=== PATIENT | female | born 1950 | race Caucasian/White ===

== ENCOUNTER 2017-05-27 17:15 | Emergency (ER) | payer MEDICARE, OTHER ==
[2017-05-27] MEDS ORDERED: diphenhydrAMINE INJ 50 MG/ML VIAL IM STA (18:20)
[2017-05-27] MEDS ORDERED: DEXAMETHASONE 10 MG/ML VIAL IM STA (18:20)
--- NOTE | 2017-05-27 18:21 | ED Physician Documentation ---
History of Present Illness - Stated complaint Stated Complaint: SWOLLEN FACE - Chief complaint Chief Complaint: General - History obtained from History obtained from: Patient, Family - History of Present Illness Timing: Other (At 89 today while preparing a salad without nuts or shellfish she developed angioedema on the right side of the face that developed to the left. It did not involve the posterior oropharynx and she has not had any wheezing or rash. She has never had this before. She is not allergic to anything. She is not on DANG inhibitors. It does not run in the family.) Review of Systems Constitutional: denies: Fever, Chills Respiratory: denies: Dyspnea, Cough GI: denies: Abdominal Pain, Nausea, Vomiting PD PAST MEDICAL HISTORY - Present Medications Home Medications: Ambulatory Orders Medication Instructions Recorded Confirmed Estrogens,Esterified [Menest] 05/27/17 05/27/17 Progesterone,Micronized 05/27/17 [Progesterone] predniSONE [Deltasone] 20 mg PO [id number] #21 tab 05/27/17 - Allergies Allergies/Adverse Reactions: Allergies Allergy/AdvReac Type Severity Reaction Status Date / Time nickel Allergy Rash Verified 05/27/17 17:28 PD ED PE NORMAL - Vitals Vital signs reviewed: Yes - General General: Alert and oriented X 3, No acute distress - HEENT HEENT: PERRL, EOMI, Other (She has angioedema of both cheeks infraorbitally and down to the jawline but not involving the retropharynx or neck.) - Cardiac Cardiac: RRR, No murmur - Respiratory Respiratory: No respiratory distress, Clear bilaterally - Abdomen Abdomen: Non tender - Derm Derm: No rash - Neuro Neuro: Alert and oriented X 3, Normal speech - Psych Psych: Normal mood, Normal affect Results - Vitals Vitals: Vital Signs - 24 hr 05/27/17 05/27/17 17:24 20:36 Temperature 36.5 C Heart Rate 60 62 Respiratory 16 14 Rate Blood Pressure 182/73 H 163/71 H O2 Saturation 100 99 Oxygen O2 Source Room air PD MEDICAL DECISION MAKING - ED course ED course: 66-year-old woman with facial angioedema without clear cause, no DANG inhibitors Or clear allergic exposure. She improved after the administration of IM Decadron and Benadryl. Advised to follow-up with an credit union manager. Departure - Departure Disposition: 01 Home, Self Care Clinical Impression: Angioedema Qualifiers: Encounter type: initial encounter Qualified Code(s): T78.3XXA - Angioneurotic edema, initial encounter Condition: Good Record reviewed to determine appropriate education?: Yes Instructions: ED Angioedema Prescriptions: predniSONE [Deltasone] 20 mg PO [id number] #21 tab Comments: Take Benadryl as needed per package instructions. Follow-up with an credit union manager of your choosing as discussed. Discharge Date/Time: 05/27/17 20:37
[2017-05-27] MEDS ORDERED: DEXAMETHASONE 10 MG/ML VIAL ONE ×2 (18:30→18:32)
[2017-05-27] MEDS ORDERED: diphenhydrAMINE INJ 50 MG/ML VIAL ONE (18:30)
[2017-05-27] MEDS ORDERED: diphenhydrAMINE 25 MG CAPSULE PO STA (19:52)
[2017-05-27] MEDS ORDERED: diphenhydrAMINE 25 MG CAPSULE PO ONE (20:18)
[2017-05-27 20:37] VITALS: BP 163/71
== END 2017-05-27 20:37 | disposition home or self-care (01) ==
LOC: ED 17:15
DX: T78.3XXA Angioneurotic edema, initial encounter (principal); X58.XXXA Exposure to other specified factors, initial encounter
CPT/HCPCS: 96372; 99283; A9270

== ENCOUNTER 2018-01-16 09:45 | Outpatient (CLI) | payer MEDICARE, OTHER | END 2018-01-16 09:46 | disposition home or self-care (01) | LOC: LAB.R 09:45 | PROVIDERS: ATTEND Physician Assistant Medical | DX: R35.0 Frequency of micturition (principal) | CPT/HCPCS: 87086 ==

== ENCOUNTER 2018-03-13 19:54 | Outpatient (CLI) | payer MEDICARE, OTHER ==
--- NOTE | 2018-03-14 11:36 | Ultrasound Report ---
RIGHT UPPER QUADRANT ULTRASOUND: 03/13/2018 CLINICAL INDICATION: Abnormal liver function tests. TECHNIQUE: Real-time scanning was performed with sales development representative static images obtained. FINDINGS: The liver measures 16.1 cm. Hepatic echogenicity is increased, compatible with fatty infiltration. No focal parenchymal lesion or intrahepatic biliary dilatation is present. The common bile duct measures 4 mm. The gallbladder is normal. The right kidney measures 11 cm, and demonstrates no hydronephrosis. IMPRESSION: FATTY INFILTRATION OF THE LIVER. NO EVIDENCE OF CHOLELITHIASIS OR BILIARY DILATATION. TD: 03/14/2018 11:35
== END 2018-03-13 19:55 | disposition home or self-care (01) ==
LOC: DI 19:54
PROVIDERS: ATTEND Family Medicine
DX: K76.0 Fatty (change of) liver, not elsewhere classified (principal)
CPT/HCPCS: 76705